=== PATIENT | male | born 1940 | race Caucasian/White ===

== ENCOUNTER 2017-04-07 09:07 | Outpatient (CLI) | payer MEDICARE, OTHER ==
[2017-04-07 09:26] LABS: BASOPHILS # (AUTO) 0.1 10^3/uL (0.0-0.1); BASOPHILS % (AUTO) 1.2 %; EOSINOPHILS # (AUTO) 0.2 10^3/uL (0.0-0.7); EOSINOPHILS % (AUTO) 3.1 %; HCT - HEMATOCRIT 40.4 % (42.0-52.0); HGB - HEMOGLOBIN 13.8 g/dL (14.0-18.0); LYMPHOCYTES # (AUTO) 1.3 10^3/uL (1.5-3.5); LYMPHOCYTES % (AUTO) 21.3 %; MEAN CORPUSCULAR HEMOGLOBIN 33.3 pg (27.0-31.0); MEAN CORPUSCULAR HGB CONC 34.3 g/dL (32.0-36.0); MEAN CORPUSCULAR VOLUME 97.3 fL (80.0-94.0); MEAN PLATELET VOLUME 6.9 fL (7.4-11.4); MONOCYTES # (AUTO) 0.6 10^3/uL (0.0-1.0); MONOCYTES % (AUTO) 9.3 %; NEUTROPHILS % (AUTO) 65.1 %; RED BLOOD COUNT 4.15 10^6/uL (4.70-6.10); RED CELL DISTRIBUTION WIDTH 12.5 % (12.0-15.0); UNCORRECTED WHITE BLOOD COUNT 6.1 x10^3/uL; WHITE BLOOD COUNT 6.1 x10^3/uL (4.8-10.8)
[2017-04-07 09:42] LABS: ALBUMIN/GLOBULIN RATIO 1.4 (1.0-2.2); BILIRUBIN,TOTAL 0.6 mg/dL (0.2-1.0); BUN - BLOOD UREA NITROGEN 13 mg/dL (6-20); CALCIUM 9.2 mg/dL (8.5-10.3); CARBON DIOXIDE - CO2 26 mmol/L (21-32); CHLORIDE 99 mmol/L (101-111); CHOL/HDL RATIO 3.7 (<5.0); CHOLESTEROL 183 mg/dL; CREATININE 0.7 mg/dL (0.6-1.2); GFR - MDRD 110 (>89); GLUCOSE 116 mg/dL (70-100); HDL CHOLESTEROL 50 mg/dL; LDL/HDL RATIO 2.2 (<3.6); POTASSIUM 4.2 mmol/L (3.5-5.0); SODIUM 135 mmol/L (135-145); TOTAL PROTEIN 6.6 g/dL (6.7-8.2); TRIGLYCERIDES 119 mg/dL; VLDL CHOLESTEROL 24 mg/dL
[2017-04-07 09:43] LABS: HEMOGLOBIN A1C 0.53 g/dL
== END 2017-04-07 09:08 | disposition home or self-care (01) ==
LOC: LAB 09:07
PROVIDERS: ATTEND Internal Medicine
DX: E11.9 Type 2 diabetes mellitus without complications (principal); E78.5 Hyperlipidemia, unspecified; I10 Essential (primary) hypertension
CPT/HCPCS: 36415; 80053; 80061; 83036; 84443; 85025

== ENCOUNTER 2018-03-08 04:22 | Outpatient (CLI) | payer MEDICARE, OTHER | END 2018-03-08 04:23 | disposition critical access hospital (66) | LOC: EMS 04:22 | PROVIDERS: ATTEND Surgery | DX: R50.9 Fever, unspecified (principal); R42 Dizziness and giddiness; R11.0 Nausea | CPT/HCPCS: A0425; A0427 ==

== ENCOUNTER 2018-03-08 04:54 | Emergency (ER) | payer MEDICARE, OTHER ==
--- NOTE | 2018-03-08 04:59 | ED Physician Documentation ---
PD HPI FEVER - Stated complaint Stated Complaint: FEVER - Chief complaint Chief Complaint: Fever - History obtained from History obtained from: Patient, Family, EMS - History of Present Illness Timing - onset: Enter time (00:00 (midnight)) Timing details: Abrupt onset, Intermittant Pain level now: 2 Associated symptoms: Chills, Sweats, Rash/skin lesion Similar symptoms before: Diagnosis (has had LLE cellulitis several times in the past, including episodes associated with fever as well as sepsis and inpatient treatmemt) Recently seen: Not recently seen - Additional information Additional information: Patient woke at approximately midnight with shaking chills, took his temperature, and it was 100.1. Approximately one hour later he woke up with another episode of shaking chills, took his temperature and it was 101. He says at that point, his gave him ibuprofen, although his , who is present in emergency department, does not recall giving him ibuprofen. Brought in by ambulance. Review of Systems Constitutional: reports: Fever, Chills, Sweats Nose: reports: Reviewed and negative Throat: reports: Reviewed and negative Cardiac: reports: Reviewed and negative Respiratory: reports: Reviewed and negative GI: reports: Reviewed and negative : denies: Dysuria, Frequency Skin: reports: Rash (left ankle) Musculoskeletal: reports: Extremity pain, Extremity swelling PD PAST MEDICAL HISTORY - Past Medical History Cardiovascular: None Respiratory: None Endocrine/Autoimmune: Type 2 diabetes, HyPOthyroidism GI: None : Other HEENT: None Psych: None Musculoskeletal: Osteoarthritis Derm: None - Past Surgical History Past Surgical History: Yes - Present Medications Home Medications: Ambulatory Orders Medication Instructions Recorded Confirmed Etodolac [Etodolac ER] 500 mg PO BID 10/16/12 03/09/18 Metformin HCl 500 mg PO BID 10/16/12 03/09/18 quiNINE sulfate [Quinine Sulfate] 324 mg PO HS 10/16/12 03/09/18 Amox/Clav 875/125 [Augmentin] 1 each PO Q12H #14 tablet 03/08/18 03/09/18 Calcium Carbonate [Calcium] 1 tab PO DAILY 03/08/18 03/09/18 Cholecalciferol (Vitamin D3) 1,000 unit PO DAILY 03/08/18 03/09/18 [Vitamin D3] - Allergies Allergies/Adverse Reactions: Allergies Allergy/AdvReac Type Severity Reaction Status Date / Time No Known Drug Allergies Allergy Verified 03/09/18 02:21 - Social History Does the pt smoke?: No Smoking Status: Former smoker Does the pt drink ETOH?: Yes Does the pt have substance abuse?: No - POLST Patient has POLST: No PD ED PE NORMAL - Vitals Vital signs reviewed: Yes - General General: Alert and oriented X 3, No acute distress, Well developed/nourished - HEENT HEENT: Moist mucous membranes - Neck Neck: Supple, no meningeal sign - Cardiac Cardiac: RRR, No murmur - Respiratory Respiratory: No respiratory distress, Clear bilaterally - Abdomen Abdomen: Soft, Non tender - Neuro Neuro: Alert and oriented X 3 PD ED PE EXPANDED - Extremities Extremities: Left ankle (medial aspect: confluent erythema with sharp margins, hot to touch, non tender. mild edema), Pedal edema bilateral Results - Vitals Vitals: Vital Signs - 24 hr 03/08/18 03/08/18 05:58 06:34 Temperature 37.5 C 38.5 C H Heart Rate 75 74 Respiratory 16 20 Rate Blood Pressure 108/76 142/94 H O2 Saturation 97 94 Oxygen O2 Source Room air Oxygen Flow Rate 3 - Labs Labs: Microbiology 03/08/18 05:41 Blood Culture - Preliminary Blood - Right Arm 03/08/18 05:21 Blood Culture - Preliminary Blood - Left Arm Laboratory Tests 03/08/18 03/08/18 03/08/18 05:18 05:21 05:21 WBC 13.2 H RBC 3.88 L Hgb 13.2 L Hct 38.4 L MCV 98.9 H MCH 34.0 H MCHC 34.4 RDW 13.2 Plt Count 213 MPV 7.2 L Neut # (Auto) 12.1 H Lymph # (Auto) 0.3 L [place] # (Auto) 0.7 Eos # (Auto) 0.0 Baso # (Auto) 0.1 Absolute Nucleated RBC 0.00 Nucleated RBC % 0.0 Sodium 131 L Potassium 3.7 Chloride 101 Carbon Dioxide 21 Anion Gap 9.0 BUN 18 Creatinine 0.7 Estimated GFR (MDRD) 110 Glucose 159 H Lactic Acid Calcium 8.7 Total Bilirubin 0.6 AST 26 ALT 19 Alkaline Phosphatase 79 Total Protein 6.7 Albumin 4.0 Globulin 2.7 Albumin/Globulin Ratio 1.5 Lipase 28 Influenza A (Rapid) Negative Influenza B (Rapid) Negative 03/08/18 05:21 WBC RBC Hgb Hct MCV MCH MCHC RDW Plt Count MPV Neut # (Auto) Lymph # (Auto) [place] # (Auto) Eos # (Auto) Baso # (Auto) Absolute Nucleated RBC Nucleated RBC % Sodium Potassium Chloride Carbon Dioxide Anion Gap BUN Creatinine Estimated GFR (MDRD) Glucose Lactic Acid 1.9 Calcium Total Bilirubin AST ALT Alkaline Phosphatase Total Protein Albumin Globulin Albumin/Globulin Ratio Lipase Influenza A (Rapid) Influenza B (Rapid) PD MEDICAL DECISION MAKING - ED course Complexity details: reviewed old records, reviewed results, re-evaluated patient, considered differential, d/w patient, d/w family Departure - Departure Disposition: 01 Home, Self Care Clinical Impression: Cellulitis of left ankle Condition: Good Instructions: ED Infec Skin Cellulitis Follow-Up: Bebeto Paul MD [Provider Admit Priv/Credential] - (3-5 days) Prescriptions: Amox/Clav 875/125 [Augmentin] 1 each PO Q12H #14 tablet Discharge Date/Time: 03/08/18 06:40
[2018-03-08 05:30] LABS: BASOPHILS # (AUTO) 0.1 10^3/uL (0.0-0.1); BASOPHILS % (AUTO) 0.5 %; EOSINOPHILS % (AUTO) 0.1 %; HGB - HEMOGLOBIN 13.2 g/dL (14.0-18.0); LYMPHOCYTES # (AUTO) 0.3 10^3/uL (1.5-3.5); MEAN CORPUSCULAR HGB CONC 34.4 g/dL (32.0-36.0); MEAN CORPUSCULAR VOLUME 98.9 fL (80.0-94.0); MEAN PLATELET VOLUME 7.2 fL (7.4-11.4); MONOCYTES # (AUTO) 0.7 10^3/uL (0.0-1.0); MONOCYTES % (AUTO) 5.6 %; NEUTROPHILS # (AUTO) 12.1 10^3/uL (1.5-6.6); NEUTROPHILS % (AUTO) 91.8 %; PLT - PLATELET COUNT 213 10^3/uL (130-450); RED BLOOD COUNT 3.88 10^6/uL (4.70-6.10); RED CELL DISTRIBUTION WIDTH 13.2 % (12.0-15.0); WHITE BLOOD COUNT 13.2 x10^3/uL (4.8-10.8)
[2018-03-08] MEDS ORDERED: ACETAMINOPHEN 325 MG TABLET PO STA (05:34)
[2018-03-08 05:41] LABS: ALBUMIN/GLOBULIN RATIO 1.5 (1.0-2.2); BILIRUBIN,TOTAL 0.6 mg/dL (0.2-1.0); CALCIUM 8.7 mg/dL (8.5-10.3); CREATININE 0.7 mg/dL (0.6-1.2); TOTAL PROTEIN 6.7 g/dL (6.7-8.2)
[2018-03-08] MEDS ORDERED: cefTRIAXone 1 GM VIAL IVP STA (06:02)
[2018-03-08 06:39] VITALS: BP 142/94
== END 2018-03-08 06:40 | disposition home or self-care (01) ==
LOC: EDUNIT# → ED 04:54
DX: L03.116 Cellulitis of left lower limb (principal); E11.9 Type 2 diabetes mellitus without complications; Z79.84 Long term (current) use of oral hypoglycemic drugs; Z87.891 Personal history of nicotine dependence
CPT/HCPCS: 36415; 80053; 83605; 83690; 85025; 87040; 87275; 87276; 96374; 99283; 99284; A9270; 87181

== ENCOUNTER 2018-03-09 01:48 | Inpatient (IN) | payer MEDICARE, OTHER ==
--- NOTE | 2018-03-09 02:23 | ED Physician Documentation ---
History of Present Illness - Stated complaint Stated Complaint: POSITIVE BC/CELLULITIS - Chief complaint Chief Complaint: General - History obtained from History obtained from: Patient, Family - History of Present Illness Timing: Last night - Additonal information Additional information: 77-year-old male who states that he had felt well yesterday and then spiked a fever at about 1:00 in the morning and came to the emergency department with shaking chills. He had some swelling and erythema to the left leg was treated for cellulitis with IV Rocephin he has been placed onto Augmentin. Today his blood cultures have returned positive for gram-negative rods out of both arms. The patient states that over the day today he has not felt well and he has been somewhat confused. He states that he still felt extremely fatigued and he has had this happen to him previously. The patient has had sepsis previously required hospitalization. Review of Systems Constitutional: reports: Fever, Chills, Myalgias, Fatigue Eyes: denies: Decreased vision Ears: denies: Ear pain Nose: reports: Congestion. denies: Rhinorrhea / runny nose Throat: denies: Sore throat Cardiac: denies: Chest pain / pressure, Palpitations Respiratory: reports: Cough. denies: Dyspnea GI: reports: Nausea. denies: Abdominal Pain, Vomiting : denies: Dysuria, Frequency Skin: denies: Rash Musculoskeletal: reports: Extremity pain, Extremity swelling. denies: Neck pain, Back pain Neurologic: reports: Generalized weakness, Confused. denies: Focal weakness, Numbness PD PAST MEDICAL HISTORY - Past Medical History Past Medical History: Yes Cardiovascular: None Respiratory: None Endocrine/Autoimmune: Type 2 diabetes, HyPOthyroidism GI: None : Other HEENT: None Psych: None Musculoskeletal: Osteoarthritis Derm: None - Past Surgical History Past Surgical History: Yes - Present Medications Home Medications: Ambulatory Orders Medication Instructions Recorded Confirmed Etodolac [Etodolac ER] 500 mg PO BID 10/16/12 03/09/18 Metformin HCl 500 mg PO BID 10/16/12 03/09/18 quiNINE sulfate [Quinine Sulfate] 324 mg PO HS 10/16/12 03/09/18 Amox/Clav 875/125 [Augmentin] 1 each PO Q12H #14 tablet 03/08/18 03/09/18 Calcium Carbonate [Calcium] 1 tab PO DAILY 03/08/18 03/09/18 Cholecalciferol (Vitamin D3) 1,000 unit PO DAILY 03/08/18 03/09/18 [Vitamin D3] - Allergies Allergies/Adverse Reactions: Allergies Allergy/AdvReac Type Severity Reaction Status Date / Time No Known Drug Allergies Allergy Verified 03/09/18 02:21 - Social History Does the pt smoke?: No Smoking Status: Never smoker Does the pt drink ETOH?: Yes Does the pt have substance abuse?: No - Immunizations Immunizations are current?: Yes - POLST Patient has POLST: No PD ED PE NORMAL - Vitals Vital signs reviewed: Yes (hypertensive ) - General General: Alert and oriented X 3, Well developed/nourished, Other (The patient appears flush and fatigued) - HEENT HEENT: Atraumatic, PERRL - Neck Neck: Supple, no meningeal sign, No bony TTP - Cardiac Cardiac: RRR, Other (2/6 holosystolic murmer at LSB) - Respiratory Respiratory: No respiratory distress, Clear bilaterally - Abdomen Abdomen: Soft, Non tender - Back Back: No CVA TTP, No spinal TTP - Derm Derm: Normal color, Warm and dry, No rash - Extremities Extremities: No deformity, Other (The left leg is swollen and tender at the ankle with faint erythema. ) - Neuro Neuro: Alert and oriented X 3, pond supervisor 2-12 intact, No motor deficit, No sensory deficit, Normal speech Eye Opening: Spontaneous Motor: Obeys Commands Verbal: Oriented GCS Score: 15 - Psych Psych: Normal mood, Normal affect Results - Vitals Vitals: Vital Signs - 24 hr 03/09/18 01:50 Temperature 36.9 C Heart Rate 64 Respiratory 18 Rate Blood Pressure 137/66 H O2 Saturation 95 Oxygen O2 Source Room air Procedures - IVC sono (time) 0230 Bedside IVC sono: IVC measures (cm) (1.19), IVC collapsed c insp (cm) (complete), Low CVP, Dehydration (est 1 liter deficit) PD MEDICAL DECISION MAKING - ED course Complexity details: reviewed old records, reviewed results, re-evaluated patient, considered differential, d/w patient, d/w family ED course: 77-year-old male with a history of prior sepsis has developed swelling and redness and tenderness in the left ankle he was seen in the emerge department last night where blood cultures were drawn and they have grown gram-negative bacilli out of both arms. He presents today not feeling well and with low central venous pressure. He is administered intravenous saline and Rocephin. His erythema appears improved from yesterday. He is still ill. Hospitalization is indicated. Departure - Departure Disposition: 66 [facility] DC/[facility] Clinical Impression: Cellulitis of left lower extremity, Bacteremia due to Gram-negative bacteria
[2018-03-09] MEDS ORDERED: cefTRIAXone 1 GM in SODIUM CHLORIDE 0.9% MINIBAG 100 ML IV STA (02:29)
[2018-03-09] MEDS ORDERED: SODIUM CHLORIDE 0.9% 1,000 ML IV ONE (02:29)
[2018-03-09] MEDS ORDERED: oxyCODONE 5 MG TABLET PO PRN (02:43)
[2018-03-09] MEDS ORDERED: ONDANSETRON 4 MG/2 ML VIAL IVP PRN (02:43)
[2018-03-09] MEDS ORDERED: ZOLPIDEM 5 MG TABLET PO PRN (02:43)
[2018-03-09] MEDS ORDERED: MORPHINE 2 MG/ML CARPUJECT IVP PRN (02:43)
[2018-03-09] MEDS ORDERED: PROCHLORPERAZINE 10 MG/2 ML VIAL IVP PRN (02:43)
[2018-03-09 03:05] LABS: BASOPHILS # (AUTO) 0.1 10^3/uL (0.0-0.1); BASOPHILS % (AUTO) 0.5 %; HGB - HEMOGLOBIN 12.5 g/dL (14.0-18.0); LYMPHOCYTES # (AUTO) 0.3 10^3/uL (1.5-3.5); LYMPHOCYTES % (AUTO) 2.9 %; MEAN CORPUSCULAR HEMOGLOBIN 34.5 pg (27.0-31.0); MEAN CORPUSCULAR HGB CONC 35.2 g/dL (32.0-36.0); MEAN PLATELET VOLUME 7.4 fL (7.4-11.4); MONOCYTES # (AUTO) 0.5 10^3/uL (0.0-1.0); MONOCYTES % (AUTO) 4.4 %; NEUTROPHILS # (AUTO) 9.8 10^3/uL (1.5-6.6); NEUTROPHILS % (AUTO) 92.2 %; PLT - PLATELET COUNT 185 10^3/uL (130-450); RED BLOOD COUNT 3.62 10^6/uL (4.70-6.10); RED CELL DISTRIBUTION WIDTH 13.1 % (12.0-15.0); WHITE BLOOD COUNT 10.6 x10^3/uL (4.8-10.8)
--- NOTE | 2018-03-09 03:09 | XRAY Report ---
Reason: sepsis cough Procedure Date: 03/09/2018 Accession Number: [id number] / [id number] Procedure: XR - Chest 1 View X-Ray CPT Code: 02942 FULL RESULT: EXAM: CHEST RADIOGRAPHY EXAM DATE: 03/09/2018 02:53 AM. CLINICAL HISTORY: Sepsis cough. COMPARISON: CHEST 2 VIEW PA/LAT 12/16/2014 11:47 PM. TECHNIQUE: 1 view. FINDINGS: Lungs/Pleura: Small lung volumes. Elevated left hemidiaphragm. Pulmonary vascular congestion. Mild left basilar atelectasis or infiltrate. No pleural effusion seen. No pneumothorax. Mediastinum: Within exam limitations, there is borderline cardiomegaly. Other: None. IMPRESSION: 1. Small lung volumes with borderline cardiomegaly and pulmonary vascular congestion. 2. Elevated left hemidiaphragm with mild left basilar atelectasis or infiltrate. RADIA
[2018-03-09 03:16] LABS: ALBUMIN 3.3 g/dL (3.2-5.5); ALBUMIN/GLOBULIN RATIO 1.1 (1.0-2.2); BILIRUBIN,TOTAL 0.7 mg/dL (0.2-1.0); CALCIUM 8.3 mg/dL (8.5-10.3); CREATININE 0.7 mg/dL (0.6-1.2); TOTAL PROTEIN 6.2 g/dL (6.7-8.2)
--- NOTE | 2018-03-09 03:23 | HISTORY & PHYSICAL EXAMINATION ---
Chief Complaint - Chief Complaint Chief Complaint: Generally feeling unwell with fever History of Present Illness - Admitted From Admitted From:: Emergency department - History Obtained From Records Reviewed: Current ER visit and previous hospitalizations History obtained from: Patient and Dr. Borrero, ED physician Exam Limitations: None - History of Present Illness HPI Comment/Other: Patient is a 77-year-old male with a past medical history of type 2 diabetes mellitus, recurrent left ankle cellulitis, prostate cancer who presents to the emergency room having been called with a positive blood culture results. The shayna castro was in the emergency room the night prior, and 03/08/2018 after he felt unwell at home, with a chief complaint of generally feeling unwell with muscle aches and feeling sick and having a fever subjectively with chills. When he was seen in the emergency room last evening, he was given a presumptive diagnosis of left ankle cellulitis as he is had this in the past, was given a dose of Rocephin and sent home with Augmentin. He returns today with worsening of the same symptoms, feeling weak, again muscle aches and unwell and was called by the emergency room staff because a blood culture came back positive with gram- negative bacilli x2. In the ED his treatment consisted of a single 1 L Bolus of IV fluids and a dose of Rocephin IV. At the time of this dictation, limited laboratory results were available with only a BMP and a CBC with no significant abnormalities with the exception of a mild hyponatremia. White blood cell count is normal. Blood pressure is normal and heart rate is normal. He does not have any obvious criteria of sepsis at this point in time despite the bacteremia. I was called to admit the patient for IV antibiotics and IV fluid hydration. History - Past Medical History Cardiovascular: reports: None Respiratory: reports: None Endocrine/Autoimmune: reports: Type 2 diabetes, HyPOthyroidism GI: reports: None : reports: Other (Prostate cancer) HEENT: reports: None Psych: reports: None Musculoskeletal: reports: Osteoarthritis Derm: reports: None MRSA Hx?: No - Past Surgical History /SURGERY ATTENDANT: reports: Other (Prostate cancer implant beats and gamma knife radiation) - POLST Patient has POLST: No Meds/Allgy - Home Medications Home Medications: Ambulatory Orders Medication Instructions Recorded Confirmed Etodolac [Etodolac ER] 500 mg PO BID 10/16/12 03/09/18 Metformin HCl 500 mg PO BID 10/16/12 03/09/18 quiNINE sulfate [Quinine Sulfate] 324 mg PO HS 10/16/12 03/09/18 Amox/Clav 875/125 [Augmentin] 1 each PO Q12H #14 tablet 03/08/18 03/09/18 Calcium Carbonate [Calcium] 1 tab PO DAILY 03/08/18 03/09/18 Cholecalciferol (Vitamin D3) 1,000 unit PO DAILY 03/08/18 03/09/18 [Vitamin D3] - Allergies Allergies/Adverse Reactions: Allergies Allergy/AdvReac Type Severity Reaction Status Date / Time No Known Drug Allergies Allergy Verified 03/09/18 02:21 Review of Systems - Constitutional Constitutional: reports: Fever, Chills, Malaise, Weakness, Poor appetite, Diaphoresis, Night sweats - Ears, Nose & Throat Ears, Nose & Throat: denies: Nasal discharge, Nasal congestion - Cardiovascular Cariovascular: denies: Chest pain - Respiratory Respiratory: denies: Cough, SOB at rest, SOB with exertion - Gastrointestinal Gastrointestinal: denies: Abdominal pain, Constipation, Diarrhea - Genitourinary Genitourinary: denies: Dysuria, Frequency, Urgency, Hematuria - Musculoskeletal Musculoskeletal: reports: Muscle pain, Back pain, Muscle aches, Stiffness, Joint pain - Integumentary Integumentary: denies: Rash - Neurological Neurological: reports: General weakness - Hematologic/Lymphatic Hematologic/Lymphatic: denies: Bruising, Lymphadenopathy Prior Level of Functionality: Independent Exam - Vital Signs Reviewed Vital Signs: Yes Vital Signs: Vital Signs x48h Temp Pulse Resp BP Pulse Ox 03/09/18 01:50 36.9 C 64 18 137/66 H 95 - Physical Exam General Appearance: positive: No acute distress Eyes Bilateral: positive: Normal inspection ENT: positive: ENT inspection nml Neck: positive: Nml inspection Respiratory: positive: Chest non-tender, No respiratory distress, Breath sounds nml Cardiovascular: positive: Regular rate & rhythm, No murmur, No gallop Peripheral Pulses: positive: 2+ Abdomen: positive: Non-tender, No organomegaly, Nml bowel sounds, No distention Skin: positive: Other (Tiny amount of subtle erythema about the left ankle) Extremities: positive: Non-tender, Nml appearance, No pedal edema. negative: Calf tenderness, Joint swelling Neurologic/Psychiatric: positive: Oriented x3, CN's nml (2-12), Motor nml, Sensation nml Sepsis Event Note (H) - Evaluation Current Stage of Sepsis: Ruled out Conclusion/Plan - Problem List (1) Bacteremia due to Gram-negative bacteria Conclusion/Plan: Based on culture results, will initiate IV antibiotic treatment until culture and sensitivities can narrow antibiotics. Given gram-negative rods we will start with Zosyn since he had Rocephin in the ED the night prior to coming in so presumably this did not help much and there is possibility of resistance. (2) Cellulitis of left lower extremity Conclusion/Plan: It is unclear if this is a confirmed diagnosis, as his exam is not very impressive about the left ankle. Apparently he has had this problem before, but given that he does not have significant erythema edema or tenderness about the ankle, cannot rule out other sources of infection and will continue to search for that as we await culture and sensitivity. (3) T2DM (type 2 diabetes mellitus) Conclusion/Plan: Unclear if the patient's diabetes is well controlled but is blood sugars on the metabolic panel are not very elevated. Will check an A1c and hold metformin and cover with a sliding scale and allow a diabetic diet. Qualifiers: Diabetes mellitus senior care insulin use: without termite inspector use Diabetes mellitus complication status: without complication Qualified Code(s): E11.9 - Type 2 diabetes mellitus without complications - Lab Results Lab results reviewed: Yes Fish Bones: 03/09/18 02:55 03/09/18 02:55 - Diagnostic Imaging Results Diagnostic Imaging Results Comments: Chest x-ray is pending at the time of this dictation Core Measures - Anticipated LOS I expect patient to be DC'd or transferred within 96 hours.: Yes - DVT/VTE - Prophylaxis VTE/DVT Device ordered at admit?: Yes
[2018-03-09] MEDS: INSULIN ASPART 300 UNIT/3 ML PEN SUBQ SCH ×5 (03:36→20:49)
[2018-03-09 03:55] LABS: HB2 TOTAL 10.2 g/dL; HEMOGLOBIN A1C 0.41 g/dL; HEMOGLOBIN A1C % 5.8 % (4.6-6.2)
[2018-03-09] MEDS: PIPERACILLIN/TAZOBACTAM 3.375 GM in SODIUM CHLORIDE 0.9% MINIBAG 100 ML IV SCH ×4 (04:21→21:47)
[2018-03-09] MEDS: SODIUM CHLORIDE 0.9% 1,000 ML IV SCH ×3 (04:21→21:32)
[2018-03-09 06:29] LABS: GLUCOSE, URINE (UA) NEGATIVE (NEGATIVE); KETONES,URINE (UA) TRACE mg/dL (NEGATIVE); LEUKOCYTE ESTERASE, URINE NEGATIVE (NEGATIVE); NITRITE,URINE NEGATIVE (NEGATIVE); OCCULT BLOOD,URINE NEGATIVE (NEGATIVE); PROTEIN,URINE NEGATIVE (NEGATIVE); UROBILINOGEN,URINE 0.2 (NORMAL) E.U./dL (NORMAL)
[2018-03-09 06:35] LABS: BILIRUBIN,URINE LARGE (NEGATIVE); CLARITY,URINE CLEAR (CLEAR); ICTOTEST,URINE POSITIVE
[2018-03-09] MEDS: FAMOTIDINE 20 MG TABLET PO SCH ×2 (09:10→20:44)
[2018-03-09] MEDS: CHOLECALCIFEROL 1,000 UNIT TABLET PO SCH (09:10)
[2018-03-09] MEDS: POLYETHYLENE GLYCOL 3350 17 GM PACKET PO SCH (09:10)
[2018-03-09] MEDS: SODIUM CHLORIDE FLUSH 0.9% 10 ML SYRINGE IVP SCH ×2 (09:10→16:09)
[2018-03-09] MEDS: ENOXAPARIN 40 MG/0.4 ML SYRINGE SUBQ SCH (09:10)
[2018-03-09] MEDS: CALCIUM CARBONATE CHEW 500 MG TABLET PO SCH (09:10)
[2018-03-09] MEDS: ETODOLAC 500 MG PO SCH ×2 (12:30→20:44)
[2018-03-09] MEDS: KETOROLAC TROMETHAMINE LEFTEYE SCH ×3 (12:30→20:49)
[2018-03-09] MEDS ORDERED: metFORMIN 500 MG TABLET PO SCH (12:30)
[2018-03-09] MEDS: IBUPROFEN 600 MG TABLET PO PRN (16:08)
[2018-03-09] MEDS: QUININE 300 MG PO SCH (20:44)
[2018-03-09] MEDS ORDERED: QUININE 324 MG PO SCH ×2 (21:00)
[2018-03-10] MEDS: SODIUM CHLORIDE FLUSH 0.9% 10 ML SYRINGE IVP SCH ×4 (01:58→23:40)
[2018-03-10] MEDS: PIPERACILLIN/TAZOBACTAM 3.375 GM in SODIUM CHLORIDE 0.9% MINIBAG 100 ML IV SCH ×4 (04:01→21:58)
[2018-03-10] MEDS: SODIUM CHLORIDE 0.9% 1,000 ML IV SCH ×3 (06:47→19:26)
[2018-03-10] MEDS: INSULIN ASPART 300 UNIT/3 ML PEN SUBQ SCH ×4 (07:50→21:49)
[2018-03-10] MEDS: KETOROLAC TROMETHAMINE LEFTEYE SCH ×4 (07:57→20:50)
[2018-03-10] MEDS: POLYETHYLENE GLYCOL 3350 17 GM PACKET PO SCH (10:19)
[2018-03-10] MEDS: CALCIUM CARBONATE CHEW 500 MG TABLET PO SCH (10:29)
[2018-03-10] MEDS: CHOLECALCIFEROL 1,000 UNIT TABLET PO SCH (10:30)
[2018-03-10] MEDS: FAMOTIDINE 20 MG TABLET PO SCH ×2 (10:30→20:48)
[2018-03-10] MEDS: ETODOLAC 500 MG PO SCH ×2 (10:31→20:49)
[2018-03-10] MEDS: ENOXAPARIN 40 MG/0.4 ML SYRINGE SUBQ SCH (10:33)
[2018-03-10] MEDS: SODIUM CHLORIDE FLUSH 0.9% 10 ML SYRINGE IVP PRN ×2 (12:26→16:54)
--- NOTE | 2018-03-10 15:31 | PROVIDER PROGRESS NOTE ---
Assessment/Plan - Problem List (1) Bacteremia due to Gram-negative bacteria Assessment/Plan: Pseudomonas was just ID'd and is sensitive to Piperacillin Will continue Pip/Tazo. Will obtain u/a and urine culture if needed to find the source. Will obtain Echo to eval for vegetation. I explained to pt and that the duration of treatment will depend on where it's source is: osteomyelitis will need 2-4 weeks of iv antibiotics, endocarditis would need 6 weeks, etc. (2) Cellulitis of left lower extremity Assessment/Plan: The patient described seeing specialists in [place] and he soaks in vinegar and puts a cream on his feet, but had a callous that didn't get the cream applied. Will obtain a L ankle and foot MRI to evaluate for osteo. (3) T2DM (type 2 diabetes mellitus) Qualifiers: Diabetes mellitus complication status: without complication Assessment/Plan: Cont carb-controlled diet and Insulin coverage. He has good home glu control with A1c of about 6. - Current Meds Current Meds: Current Medications Generic Name Dose Route Start Last Admin Trade Name Freq PRN Reason Stop Dose Admin Calcium Carbonate/Glycine 500 mg 03/09/18 09:00 03/10/18 10:29 Tums PO 500 mg DAILY HEATHER Administration Cholecalciferol 1,000 unit 03/09/18 09:00 03/10/18 10:30 Vitamin D3 PO 1,000 unit DAILY HEATHER Administration Enoxaparin Sodium 40 mg 03/09/18 09:00 03/10/18 10:33 Lovenox SUBQ 40 mg DAILY HEATHER Administration Famotidine 20 mg 03/09/18 09:00 03/10/18 10:30 Pepcid PO 20 mg BID HEATHER Administration Piperacillin Sod/Tazobactam 100 mls @ 200 mls/hr 03/09/18 04:00 03/10/18 10:55 Sod 3.375 gm/ Sodium Chloride IV Infused Q6H HEATHER Infusion Sodium Chloride 1,000 mls @ 125 mls/hr 03/09/18 03:00 03/10/18 06:47 Normal Saline 0.9% IV 125 mls/hr .Q8H HEATHER Administration Ibuprofen 600 mg 03/09/18 02:43 03/09/18 16:08 Motrin PO 600 mg Q6HR PRN Administration Pain 1 to 4 Insulin Aspart 1 - 9 unit 03/09/18 02:54 03/10/18 12:27 Novolog SUBQ Not Given 0800,1200,1700,2100 [facility] Protocol Ketorolac 1 each 03/09/18 13:00 03/10/18 12:27 Tromethamine [ LEFTEYE 1 each Ketorolac QID HEATHER Administration Tromethamine] 1 Drops Prednisolone 1% 1 each 03/09/18 13:00 03/10/18 12:27 Ophth Drops LEFTEYE 1 each QID HEATHER Administration Quinine-Odan 300 Mg 1 each 03/09/18 21:00 03/09/18 20:44 PO 1 each QPM HEATHER Administration Etodolac [Etodolac 1 each 03/09/18 12:15 03/10/18 10:31 Er] 500 Mg Tab PO 1 each BID HEATHER Administration Polyethylene Glycol 17 gm 03/09/18 09:00 03/10/18 10:19 Miralax PO Not Given DAILY HEATHER Sodium Chloride 10 ml 03/09/18 02:43 03/10/18 12:26 Normal Saline Flush 0.9% IVP 10 ml PRN PRN Administration NEEDED PER PROVIDER ORDERS Sodium Chloride 10 ml 03/09/18 09:00 03/10/18 12:29 Normal Saline Flush 0.9% IVP 10 ml 0100,0900,1700 HEATHER Administration - Lab Result Fish Bone Diagrams: 03/09/18 02:55 03/09/18 02:55 Subjective - Subjective Patient Reports: No Complaints, Other (Has no feeling in his feet.) Objective Vital Signs: Vital Signs - 24 hr 03/09/18 03/09/18 03/09/18 15:32 20:51 22:17 Temperature 37.3 C 36.5 C Heart Rate [ 55 L 54 L Brachial] Respiratory 16 24 18 Rate Blood Pressure 152/73 H [Left Brachial artery] Blood Pressure 138/67 H [Right Brachial artery] O2 Saturation 97 97 03/09/18 03/10/18 23:35 07:20 Temperature 36.8 C 36.7 C Heart Rate [ 54 L 51 L Brachial] Respiratory 16 16 Rate Blood Pressure 131/70 H [Left Brachial artery] Blood Pressure 154/87 H [Right Brachial artery] O2 Saturation 95 96 Oxygen O2 Source Room air I&O (Last 24 Hrs): Intake and Output Totals x24h 03/08/18 03/09/18 03/10/18 23:59 23:59 23:59 Intake Total 20 2250 2444.167 Output Total 2125 1500 Balance 20 9075 944.167 General: Alert, Oriented x3 HEENT: Mucous membr. moist/pink Neck: Supple, No JVD Neuro: Non Focal Cardiovascular: Regular rate, No murmurs Respiratory: No respiratory distress, Breath sounds nml Abdomen: Soft, Other (Obese) Extremities: Other (L pedal edema) - Results Results: Laboratory Results WBC 10.6 x10^3/uL (4.8-10.8) 03/09/18 02:55 RBC 3.62 10^6/uL (4.70-6.10) L 03/09/18 02:55 Hgb 12.5 g/dL (14.0-18.0) L 03/09/18 02:55 Hct 35.4 % (42.0-52.0) L 03/09/18 02:55 MCV 98.0 fL (80.0-94.0) H 03/09/18 02:55 MCH 34.5 pg (27.0-31.0) H 03/09/18 02:55 MCHC 35.2 g/dL (32.0-36.0) 03/09/18 02:55 RDW 13.1 % (12.0-15.0) 03/09/18 02:55 Plt Count 185 10^3/uL (130-450) 03/09/18 02:55 MPV 7.4 fL (7.4-11.4) 03/09/18 02:55 Neut # (Auto) 9.8 10^3/uL (1.5-6.6) H 03/09/18 02:55 Lymph # (Auto) 0.3 10^3/uL (1.5-3.5) L 03/09/18 02:55 [place] # (Auto) 0.5 10^3/uL (0.0-1.0) 03/09/18 02:55 Eos # (Auto) 0.0 10^3/uL (0.0-0.7) 03/09/18 02:55 Baso # (Auto) 0.1 10^3/uL (0.0-0.1) 03/09/18 02:55 Absolute Nucleated RBC 0.01 x10^3/uL 03/09/18 02:55 Nucleated RBC % 0.0 /100WBC 03/09/18 02:55 Sodium 128 mmol/L (135-145) L 03/09/18 02:55 Potassium 3.6 mmol/L (3.5-5.0) 03/09/18 02:55 Chloride 102 mmol/L (101-111) 03/09/18 02:55 Carbon Dioxide 22 mmol/L (21-32) 03/09/18 02:55 Anion Gap 4.0 (6-13) L 03/09/18 02:55 BUN 22 mg/dL (6-20) H 03/09/18 02:55 Creatinine 0.7 mg/dL (0.6-1.2) 03/09/18 02:55 Estimated GFR (MDRD) 110 (>89) 03/09/18 02:55 Glucose 122 mg/dL (70-100) H 03/09/18 02:55 POC Whole Bld Glucose 104 mg/dL (70 - 100) H 03/10/18 11:03 Glycated Hemoglobin 5.8 % (4.6-6.2) 03/09/18 03:05 Estim Average Glucose 120 (70-100) H 03/09/18 03:05 Lactic Acid 0.7 mmol/L (0.5-2.2) 03/09/18 02:55 Calcium 8.3 mg/dL (8.5-10.3) L 03/09/18 02:55 Total Bilirubin 0.7 mg/dL (0.2-1.0) 03/09/18 02:55 AST 32 IU/L (10-42) 03/09/18 02:55 ALT 30 IU/L (10-60) 03/09/18 02:55 Alkaline Phosphatase 63 IU/L (42-121) 03/09/18 02:55 Total Protein 6.2 g/dL (6.7-8.2) L 03/09/18 02:55 Albumin 3.3 g/dL (3.2-5.5) 03/09/18 02:55 Globulin 2.9 g/dL (2.1-4.2) 03/09/18 02:55 Albumin/Globulin Ratio 1.1 (1.0-2.2) 03/09/18 02:55 Lipase 22 U/L (22-51) 03/09/18 02:55 Urine Color DARK YELLOW 03/09/18 05:50 Urine Clarity CLEAR (CLEAR) 03/09/18 05:50 Urine pH 6.0 PH (5.0-7.5) 03/09/18 05:50 Ur Specific [place] 1.025 (1.002-1.030) 03/09/18 05:50 Urine Protein NEGATIVE mg/dL (NEGATIVE) 03/09/18 05:50 Urine Glucose (UA) NEGATIVE mg/dL (NEGATIVE) 03/09/18 05:50 Urine Ketones TRACE mg/dL (NEGATIVE) 03/09/18 05:50 Urine Occult Blood NEGATIVE (NEGATIVE) 03/09/18 05:50 Urine Nitrite NEGATIVE (NEGATIVE) 03/09/18 05:50 Urine Bilirubin LARGE (NEGATIVE) H 03/09/18 05:50 Urine Urobilinogen 0.2 (NORMAL) E.U./dL (NORMAL) 03/09/18 05:50 Ur Leukocyte Esterase NEGATIVE (NEGATIVE) 03/09/18 05:50 Ur Microscopic Review NOT INDICATED 03/09/18 05:50 Urine Culture Comments NOT INDICATED 03/09/18 05:50 Sepsis Event Note (H) - Evaluation Current Stage of Sepsis: Ruled out
[2018-03-10 19:19] LABS: GLUCOSE, URINE (UA) NEGATIVE (NEGATIVE); KETONES,URINE (UA) NEGATIVE (NEGATIVE); LEUKOCYTE ESTERASE, URINE NEGATIVE (NEGATIVE); NITRITE,URINE NEGATIVE (NEGATIVE); OCCULT BLOOD,URINE SMALL (NEGATIVE); PROTEIN,URINE NEGATIVE (NEGATIVE); UROBILINOGEN,URINE 0.2 (NORMAL) E.U./dL (NORMAL)
[2018-03-10 19:23] LABS: BILIRUBIN,URINE NEGATIVE (NEGATIVE); CLARITY,URINE CLEAR (CLEAR); ICTOTEST,URINE NEGATIVE
[2018-03-10 19:26] LABS: BACTERIA,URINE None Seen /HPF (None Seen); RBC,URINE 0-5 /HPF (0-5); SQUAMOUS EPITHELIAL CELL,UR NONE SEEN (<= Few)
[2018-03-10] MEDS: QUININE 300 MG PO SCH (20:49)
[2018-03-11] MEDS: SODIUM CHLORIDE 0.9% 1,000 ML IV SCH ×3 (03:19→23:01)
[2018-03-11] MEDS: PIPERACILLIN/TAZOBACTAM 3.375 GM in SODIUM CHLORIDE 0.9% MINIBAG 100 ML IV SCH ×2 (03:20→10:27)
[2018-03-11 06:35] LABS: BASOPHILS % (AUTO) 1.2 %; EOSINOPHILS # (AUTO) 0.1 10^3/uL (0.0-0.7); EOSINOPHILS % (AUTO) 2.6 %; HGB - HEMOGLOBIN 11.9 g/dL (14.0-18.0); LYMPHOCYTES % (AUTO) 23.7 %; MEAN CORPUSCULAR HEMOGLOBIN 33.7 pg (27.0-31.0); MEAN CORPUSCULAR VOLUME 99.2 fL (80.0-94.0); MEAN PLATELET VOLUME 7.9 fL (7.4-11.4); MONOCYTES # (AUTO) 0.6 10^3/uL (0.0-1.0); MONOCYTES % (AUTO) 13.8 %; NEUTROPHILS # (AUTO) 2.4 10^3/uL (1.5-6.6); NEUTROPHILS % (AUTO) 58.7 %; PLT - PLATELET COUNT 166 10^3/uL (130-450); RED BLOOD COUNT 3.52 10^6/uL (4.70-6.10); RED CELL DISTRIBUTION WIDTH 12.9 % (12.0-15.0); WHITE BLOOD COUNT 4.1 x10^3/uL (4.8-10.8)
[2018-03-11 06:48] LABS: CALCIUM 8.5 mg/dL (8.5-10.3); CREATININE 0.7 mg/dL (0.6-1.2)
[2018-03-11] MEDS: SODIUM CHLORIDE FLUSH 0.9% 10 ML SYRINGE IVP SCH ×2 (07:40→17:43)
[2018-03-11] MEDS: INSULIN ASPART 300 UNIT/3 ML PEN SUBQ SCH ×4 (08:45→22:39)
[2018-03-11] MEDS: POLYETHYLENE GLYCOL 3350 17 GM PACKET PO SCH (08:46)
[2018-03-11] MEDS: ENOXAPARIN 40 MG/0.4 ML SYRINGE SUBQ SCH (08:46)
[2018-03-11] MEDS: CALCIUM CARBONATE CHEW 500 MG TABLET PO SCH (08:46)
[2018-03-11] MEDS: FAMOTIDINE 20 MG TABLET PO SCH ×2 (08:46→21:49)
[2018-03-11] MEDS: CHOLECALCIFEROL 1,000 UNIT TABLET PO SCH (08:46)
[2018-03-11] MEDS: ETODOLAC 500 MG PO SCH ×2 (08:47→21:50)
[2018-03-11] MEDS: KETOROLAC TROMETHAMINE LEFTEYE SCH ×4 (08:47→21:50)
--- NOTE | 2018-03-11 09:05 | PROVIDER PROGRESS NOTE ---
Assessment/Plan - Problem List (1) Bacteremia due to Pseudomonas Assessment/Plan: Echo showed no vegetations. U/A was neg for bacteria (but sample was provided after several doses of antibiotics. MRI of L foot pending. The blood cultures taken after admitted and with his fever spike, have been neg thus far. Course of treatment will depend on source. We may need help from ID specialists at . I informed patient of this. (2) Cellulitis of left lower extremity Assessment/Plan: Pt on antibiotics, no complaints of pain. (3) T2DM (type 2 diabetes mellitus) Qualifiers: Diabetes mellitus complication status: without complication Assessment/Plan: Continue oral meds, DM diet and ss Insulin. - Current Meds Current Meds: Current Medications Generic Name Dose Route Start Last Admin Trade Name Freq PRN Reason Stop Dose Admin Calcium Carbonate/Glycine 500 mg 03/09/18 09:00 03/11/18 08:46 Tums PO 500 mg DAILY HEATHER Administration Cholecalciferol 1,000 unit 03/09/18 09:00 03/11/18 08:46 Vitamin D3 PO 1,000 unit DAILY HEATHER Administration Enoxaparin Sodium 40 mg 03/09/18 09:00 03/11/18 08:46 Lovenox SUBQ 40 mg DAILY HEATHER Administration Famotidine 20 mg 03/09/18 09:00 03/11/18 08:46 Pepcid PO 20 mg BID HEATHER Administration Piperacillin Sod/Tazobactam 100 mls @ 200 mls/hr 03/09/18 04:00 03/11/18 04:10 Sod 3.375 gm/ Sodium Chloride IV Infused Q6H HEATHER Infusion Sodium Chloride 1,000 mls @ 125 mls/hr 03/09/18 03:00 03/11/18 03:19 Normal Saline 0.9% IV 125 mls/hr .Q8H HEATHER Administration Ibuprofen 600 mg 03/09/18 02:43 03/09/18 16:08 Motrin PO 600 mg Q6HR PRN Administration Pain 1 to 4 Insulin Aspart 1 - 9 unit 03/09/18 02:54 03/11/18 08:45 Novolog SUBQ Not Given 0800,1200,1700,2100 [facility] Protocol Ketorolac 1 each 03/09/18 13:00 03/11/18 08:47 Tromethamine [ LEFTEYE 1 each Ketorolac QID HEATHER Administration Tromethamine] 1 Drops Prednisolone 1% 1 each 03/09/18 13:00 03/11/18 08:47 Ophth Drops LEFTEYE 1 each QID HEATHER Administration Quinine-Odan 300 Mg 1 each 03/09/18 21:00 03/10/18 20:49 PO 1 each QPM HEATHER Administration Etodolac [Etodolac 1 each 03/09/18 12:15 03/11/18 08:47 Er] 500 Mg Tab PO 1 each BID HEATHER Administration Polyethylene Glycol 17 gm 03/09/18 09:00 03/11/18 08:46 Miralax PO Not Given DAILY HEATHER Sodium Chloride 10 ml 03/09/18 02:43 03/10/18 16:54 Normal Saline Flush 0.9% IVP 10 ml PRN PRN Administration NEEDED PER PROVIDER ORDERS Sodium Chloride 10 ml 03/09/18 09:00 03/11/18 07:40 Normal Saline Flush 0.9% IVP Not Given 0100,0900,1700 HEATHER - Lab Result Fish Bone Diagrams: 03/11/18 06:10 03/11/18 06:10 - Additional Planning My Orders: My Active Orders 03/11/18 07:30 Echo Transthoracic Complete [ECHO] Routine 03/11/18 08:00 Ankle LT W/WO [MRI] Routine 03/12/18 05:00 BMP - BASIC METABOLIC PANEL [CHEM] DAILYLAB CBC - COMP BLD CT W/AUTO DIFF [HEME] DAILYLAB 03/13/18 05:00 BMP - BASIC METABOLIC PANEL [CHEM] DAILYLAB CBC - COMP BLD CT W/AUTO DIFF [HEME] DAILYLAB Subjective - Subjective Patient Reports: No Complaints Objective Vital Signs: Vital Signs - 24 hr 03/10/18 03/11/18 03/11/18 15:56 00:00 08:00 Temperature 36.2 C L 36.5 C 36.6 C Heart Rate [ 52 L 50 L 55 L Brachial] Respiratory 16 18 18 Rate Blood Pressure 164/89 H [Left Brachial artery] Blood Pressure 140/75 H 160/90 H [Right Brachial artery] O2 Saturation 96 97 100 Oxygen O2 Source Room air I&O (Last 24 Hrs): Intake and Output Totals x24h 03/09/18 03/10/18 03/11/18 23:59 23:59 23:59 Intake Total 5650 4387.917 641.667 Output Total 2125 1500 1375 Balance 3525 0617.917 -733.333 General: Alert, Oriented x3 HEENT: Mucous membr. moist/pink Neck: Supple Neuro: Non Focal Cardiovascular: Regular rate, No murmurs Respiratory: No respiratory distress, Breath sounds nml Abdomen: Normal bowel sounds Extremities: Other (Bilat pedal edema) - Results Results: Laboratory Results WBC 4.1 x10^3/uL (4.8-10.8) L 03/11/18 06:10 RBC 3.52 10^6/uL (4.70-6.10) L 03/11/18 06:10 Hgb 11.9 g/dL (14.0-18.0) L 03/11/18 06:10 Hct 35.0 % (42.0-52.0) L 03/11/18 06:10 MCV 99.2 fL (80.0-94.0) H 03/11/18 06:10 MCH 33.7 pg (27.0-31.0) H 03/11/18 06:10 MCHC 34.0 g/dL (32.0-36.0) 03/11/18 06:10 RDW 12.9 % (12.0-15.0) 03/11/18 06:10 Plt Count 166 10^3/uL (130-450) 03/11/18 06:10 MPV 7.9 fL (7.4-11.4) 03/11/18 06:10 Neut # (Auto) 2.4 10^3/uL (1.5-6.6) 03/11/18 06:10 Lymph # (Auto) 1.0 10^3/uL (1.5-3.5) L 03/11/18 06:10 Park # (Auto) 0.6 10^3/uL (0.0-1.0) 03/11/18 06:10 Eos # (Auto) 0.1 10^3/uL (0.0-0.7) 03/11/18 06:10 Baso # (Auto) 0.0 10^3/uL (0.0-0.1) 03/11/18 06:10 Absolute Nucleated RBC 0.00 x10^3/uL 03/11/18 06:10 Nucleated RBC % 0.0 /100WBC 03/11/18 06:10 Sodium 136 mmol/L (135-145) 03/11/18 06:10 Potassium 3.9 mmol/L (3.5-5.0) 03/11/18 06:10 Chloride 105 mmol/L (101-111) 03/11/18 06:10 Carbon Dioxide 26 mmol/L (21-32) 03/11/18 06:10 Anion Gap 5.0 (6-13) L 03/11/18 06:10 BUN 12 mg/dL (6-20) 03/11/18 06:10 Creatinine 0.7 mg/dL (0.6-1.2) 03/11/18 06:10 Estimated GFR (MDRD) 110 (>89) 03/11/18 06:10 Glucose 99 mg/dL (70-100) 03/11/18 06:10 POC Whole Bld Glucose 93 mg/dL (70 - 100) 03/11/18 08:01 Glycated Hemoglobin 5.8 % (4.6-6.2) 03/09/18 03:05 Estim Average Glucose 120 (70-100) H 03/09/18 03:05 Lactic Acid 0.7 mmol/L (0.5-2.2) 03/09/18 02:55 Calcium 8.5 mg/dL (8.5-10.3) 03/11/18 06:10 Total Bilirubin 0.7 mg/dL (0.2-1.0) 03/09/18 02:55 AST 32 IU/L (10-42) 03/09/18 02:55 ALT 30 IU/L (10-60) 03/09/18 02:55 Alkaline Phosphatase 63 IU/L (42-121) 03/09/18 02:55 Total Protein 6.2 g/dL (6.7-8.2) L 03/09/18 02:55 Albumin 3.3 g/dL (3.2-5.5) 03/09/18 02:55 Globulin 2.9 g/dL (2.1-4.2) 03/09/18 02:55 Albumin/Globulin Ratio 1.1 (1.0-2.2) 03/09/18 02:55 Lipase 22 U/L (22-51) 03/09/18 02:55 Urine Color YELLOW 03/10/18 19:05 Urine Clarity CLEAR (CLEAR) 03/10/18 19:05 Urine pH 6.0 PH (5.0-7.5) 03/10/18 19:05 Ur Specific [place] 1.025 (1.002-1.030) 03/10/18 19:05 Urine Protein NEGATIVE mg/dL (NEGATIVE) 03/10/18 19:05 Urine Glucose (UA) NEGATIVE mg/dL (NEGATIVE) 03/10/18 19:05 Urine Ketones NEGATIVE mg/dL (NEGATIVE) 03/10/18 19:05 Urine Occult Blood SMALL (NEGATIVE) H 03/10/18 19:05 Urine Nitrite NEGATIVE (NEGATIVE) 03/10/18 19:05 Urine Bilirubin NEGATIVE (NEGATIVE) 03/10/18 19:05 Urine Urobilinogen 0.2 (NORMAL) E.U./dL (NORMAL) 03/10/18 19:05 Ur Leukocyte Esterase NEGATIVE (NEGATIVE) 03/10/18 19:05 Urine RBC 0-5 /HPF (0-5) 03/10/18 19:05 Urine WBC 0-3 /HPF (0-3) 03/10/18 19:05 Ur Squamous Epith Cells NONE SEEN (<= Few) 03/10/18 19:05 Urine Bacteria None Seen /HPF (None Seen) 03/10/18 19:05 Ur Microscopic Review INDICATED 03/10/18 19:05 Urine Culture Comments NOT INDICATED 03/10/18 19:05 Sepsis Event Note (H) - Evaluation Current Stage of Sepsis: Ruled out
[2018-03-11] MEDS ORDERED: GADOBUTROL 10 MMOL/10 ML VIAL ONE (11:33)
[2018-03-11] MEDS ORDERED: GADOBUTROL 15 MMOL/15 ML VIAL ONE (11:33)
[2018-03-11] MEDS ORDERED: GADOBUTROL 10 MMOL/10 ML VIAL IVP ONE (12:34)
--- NOTE | 2018-03-11 15:57 | MRI Report ---
Reason: Bacteremia, cellulitis L ankle Hx, eval for osteo Procedure Date: 03/11/2018 Accession Number: [id number] / [id number] Procedure: MRI - Ankle LT W/WO CPT Code: FULL RESULT: EXAM: LEFT ANKLE/HINDFOOT MRI WITHOUT AND WITH CONTRAST EXAM DATE: 03/11/2018 01:04 PM. CLINICAL HISTORY: Bacteremia. Left ankle cellulitis. Clinical concern for osteomyelitis. COMPARISON: None. TECHNIQUE: Multiplanar, multisequence T1-weighted and fluid-sensitive sequences of the ankle before and after administration of intravenous contrast. IV contrast: 10 mL Gadavist. Other: None. FINDINGS: Bones: Severe periarticular marrow edema and cyst formation is in the tibiotalar joints, the posterior subtalar joints, and the calcaneocuboid joint. There is mild ahsan-radicular cyst formation in the navicular distally. Although this is a nonweightbearing examination, the patient likely has severe pes planus. The fibula articulates with the lateral portion of the calcaneus. Articular Cartilage: Severe cartilage thinning is in the anterior tibiotalar joint. Ligaments: The anterior and posterior tibiofibular, anterior and posterior talofibular, and calcaneofibular ligaments are intact. The deep and superficial deltoid and spring ligaments are intact. Anterior Tendons: The tibialis anterior, extensor hallucis longus, and extensor digitorum longus tendons are unremarkable. Medial Tendons: The tibialis posterior, flexor digitorum longus, and flexor hallucis longus tendons are unremarkable. Lateral Tendons: The peroneus brevis and longus are unremarkable. Achilles Tendon: The Achilles tendon is unremarkable. Musculature: Severe fatty atrophy and some muscle edema and some edema is demonstrated in the intrinsic muscular foot indicating denervation injury. Other: No effusions or synovitis. The sinus tarsi is effaced and there is edema within it. No plantar fasciitis. Severe subcutaneous edema surrounds the hindfoot and mid foot. IMPRESSION: 1. 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 3. Subcutaneous edema around the foot may be cellulitis. No obvious drainable fluid collections. [facility] MUSCULOSKELETAL RADIOLOGY SECTION
[2018-03-11] MEDS: PIPERACILLIN/TAZOBACTAM 4.5 GM in SODIUM CHLORIDE 0.9% MINIBAG 100 ML IV SCH ×2 (16:11→22:53)
[2018-03-11] MEDS ORDERED: hydrALAZINE INJ 20 MG/ML VIAL IVP PRN (20:09)
[2018-03-11] MEDS: QUININE 300 MG PO SCH (21:50)
[2018-03-12] MEDS: SODIUM CHLORIDE FLUSH 0.9% 10 ML SYRINGE IVP SCH ×2 (01:55→08:41)
[2018-03-12] MEDS: amLODIPine 5 MG TABLET PO SCH ×2 (01:57→08:40)
[2018-03-12] MEDS: SODIUM CHLORIDE FLUSH 0.9% 10 ML SYRINGE IVP PRN (04:11)
[2018-03-12] MEDS: PIPERACILLIN/TAZOBACTAM 4.5 GM in SODIUM CHLORIDE 0.9% MINIBAG 100 ML IV SCH ×2 (04:11→10:52)
[2018-03-12] MEDS: IBUPROFEN 600 MG TABLET PO PRN (04:28)
[2018-03-12 06:37] LABS: BASOPHILS % (AUTO) 0.7 %; EOSINOPHILS # (AUTO) 0.1 10^3/uL (0.0-0.7); EOSINOPHILS % (AUTO) 2.5 %; LYMPHOCYTES # (AUTO) 1.1 10^3/uL (1.5-3.5); LYMPHOCYTES % (AUTO) 22.3 %; MEAN CORPUSCULAR HEMOGLOBIN 33.6 pg (27.0-31.0); MEAN CORPUSCULAR VOLUME 98.8 fL (80.0-94.0); MEAN PLATELET VOLUME 7.2 fL (7.4-11.4); MONOCYTES # (AUTO) 0.6 10^3/uL (0.0-1.0); MONOCYTES % (AUTO) 11.8 %; NEUTROPHILS # (AUTO) 3.2 10^3/uL (1.5-6.6); NEUTROPHILS % (AUTO) 62.7 %; PLT - PLATELET COUNT 217 10^3/uL (130-450); RED BLOOD COUNT 3.87 10^6/uL (4.70-6.10); RED CELL DISTRIBUTION WIDTH 13.4 % (12.0-15.0); WHITE BLOOD COUNT 5.1 x10^3/uL (4.8-10.8)
[2018-03-12 06:45] LABS: CALCIUM 8.9 mg/dL (8.5-10.3); CREATININE 0.6 mg/dL (0.6-1.2)
[2018-03-12] MEDS: CALCIUM CARBONATE CHEW 500 MG TABLET PO SCH (08:40)
[2018-03-12] MEDS: ENOXAPARIN 40 MG/0.4 ML SYRINGE SUBQ SCH (08:40)
[2018-03-12] MEDS: FAMOTIDINE 20 MG TABLET PO SCH (08:40)
[2018-03-12 08:41] VITALS: BP 180/89
[2018-03-12] MEDS: KETOROLAC TROMETHAMINE LEFTEYE SCH ×2 (08:41→12:04)
[2018-03-12] MEDS: POLYETHYLENE GLYCOL 3350 17 GM PACKET PO SCH (08:41)
[2018-03-12] MEDS: INSULIN ASPART 300 UNIT/3 ML PEN SUBQ SCH ×2 (08:41→12:01)
[2018-03-12] MEDS: ETODOLAC 500 MG PO SCH (08:45)
[2018-03-12] MEDS: CHOLECALCIFEROL 1,000 UNIT TABLET PO SCH (08:45)
[2018-03-12] MEDS ORDERED: IOPAMIDOL-300 100 ML VIAL ONE (09:22)
[2018-03-12] MEDS ORDERED: IOVERSOL 320 50 ML VIAL ONE (09:22)
[2018-03-12] MEDS ORDERED: IOPAMIDOL-300 100 ML VIAL IVP ONE (10:41)
[2018-03-12] MEDS ORDERED: IOVERSOL 320 50 ML VIAL PO ONE (10:41)
--- NOTE | 2018-03-12 11:54 | CT Report ---
Reason: pseudomonas with oral and IV Procedure Date: 03/12/2018 Accession Number: [id number] / [id number] Procedure: CT - Abdomen/Pelvis W/ CPT Code: FULL RESULT: EXAM: CT ABDOMEN AND PELVIS EXAM DATE: 03/12/2018 10:17 AM. CLINICAL HISTORY: Pseudomonas bacteremia, uncertain source. COMPARISONS: None. TECHNIQUE: Routine helical CT imaging was performed through the abdomen and pelvis. IV contrast: ISOVUE 300 100mL. Enteric contrast: Yes. Reconstructions: Coronal and sagittal. In accordance with CT protocol optimization, one or more of the following dose reduction techniques were utilized for this exam: automated exposure control, adjustment of mA and/or KV based on patient size, or use of iterative reconstructive technique. FINDINGS: Lung Bases: Unremarkable. Liver: Unremarkable. Gallbladder/Bile Ducts: Unremarkable. Spleen: Normal. Pancreas: Mild diffuse fatty replacement is noted, otherwise, unremarkable. Adrenal Glands: Normal. Kidneys: No stone, masses or hydronephrosis. Peritoneal Cavity/Bowel: There is a colon diverticulosis without diverticulitis. No free fluid, free air or adenopathy. No masses or acute inflammatory process. The appendix is well visualized and normal. Pelvic Organs: There are radiation seeds in the prostate. The bladder and visualized pelvic organs are within normal limits. Vasculature: No aneurysms or other significant abnormality. Bones: No bony destructive abnormality. There is moderate mid lumbar levoscoliosis with multilevel mild to severe degenerative disk disease, predominantly in the lower lumbar spine. IMPRESSION: 1. Negative for abscess, fluid collection, acute inflammatory changes, bowel obstruction or colitis in the abdomen and pelvis CT. 2. Colon diverticulosis. 3. Moderate mid lumbar levoscoliosis with multilevel mild to severe degenerative disk disease, predominantly in the lower lumbar spine. [facility]
--- NOTE | 2018-03-12 12:08 | Discharge Plan ---
Discharge Plan Disposition: Home, Self Care Condition: Good Prescriptions: Ciprofloxacin HCl [Cipro] 750 mg PO BID #60 tablet Diet: Diabetic Activity Restrictions: No Restrictions Shower Restrictions: No Driving Restrictions: No Instruction Topics: Levofloxacin tablets, Cellulitis Dc, ED Bacteremia Rule Out, ED Infec Skin Cellulitis Additional Instructions or Follow Up instructions: You were admitted to the hospital because blood cultures have been positive after a visit to the emergency room. You had been sent home, but with the posi tive blood cultures were requested to come back to the hospital. Blood cultures were growing Pseudomonas. While it is possible to be from cellulitis, Pseudomonas usually comes from other areas of your body and we were puzzled as to why that was in your bloodstream. Nevertheless, you were treated as an infection with broad-spectrum antibiotics. We look for other sources of Pseudomonas and a CAT scan of your abdomen showed a normal bowel, normal bladder and normal kidney. We did speak to [facility] infectious disease and they recommended 10 days of Ciprofloxacin by mouth. You were to complete that therapy at home. Your primary care provider is Dr. Bebeto Paul. He has been following you carefully and spoke to us on the day of your discharge and knows what the plan is. During your stay your blood pressure has intermittently been elevated. Sometimes it is down to 118 systolic and can get as high as 180 systolic. Your diastolic number has been good at 54-89. I would ask that you check your blood pressure once a day only. Write those numbers down and present them to Dr. Paul to see if you need to resume blood pressure medicines that were stopped in the past. No Smoking: If you smoke, Please STOP! Call for help. Follow-up with: Bebeto Paul MD [Primary Care Provider] -
[2018-03-12] MEDS ORDERED: amLODIPine 5 MG TABLET PO SCH (22:13)
--- NOTE | 2018-03-12 22:34 | DISCHARGE SUMMARY ---
Physician: Martha Alonso MD DATE OF ADMISSION: 03/09/2018 DATE OF DISCHARGE: 03/12/2018 DISCHARGE DIAGNOSES 1. Bacteremia due to Pseudomonas. 2. Cellulitis of left lower extremity. 3. Type 2 diabetes mellitus, without complication, not on long-term use of insulin. 4. Hypertension. 5. History of prostate cancer. PRINCIPAL PROCEDURES 1. Blood cultures done 03/09/2018 without growth. 2. Blood cultures done 03/08/2018 showing Pseudomonas aeruginosa sensitive to cefepime, Cipro, gentamicin, imipenem, Levaquin, piperacillin, tobramycin. 3. Echocardiogram preliminary reading. Systolic ejection fraction 55-60% with impaired relaxation consistent with grade 1 diastolic dysfunction. No regional wall motion abnormalities. Right ventricle normal. Severe increase in left atrial volume index, mild to moderate right atrial enlargement. 4. Chest x-ray with small lung volumes, borderline cardiomegaly and pulmonary vascular congestion. Elevated left hemidiaphragm with mild left basilar atelectasis or infiltrate. 5. MRI of the ankle and foot: Acquired degenerative hindfoot deformity, arthritic sinus tarsi syndrome, subcutaneous edema around the foot may be cellulitis. No osteomyelitis. 6. Abdomen and pelvis CT: Lung bases unremarkable, liver unremarkable, gallbladder and ducts unremarkable, spleen normal. Fatty replacement of the pancreas. No stones, masses, or hydronephrosis. Colonic diverticulosis without any free air, masses, inflammation. Radiation seeds in the prostate. Bladder and visualized pelvic organs normal. 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 He had been in the emergency room the night prior to admission and felt unwell at home. His chief complaint was feeling unwell with muscle aches, feeling sick and having a fever and chills. He was given a presumptive diagnosis of recurrence of his left ankle cellulitis because he had had this in the past. There may have been mild increased streaking and redness, but it was really mild. He was given a dose of Rocephin and sent home on Augmentin. He had to return today when the ER called him to tell him that his blood cultures were now growing Pseudomonas. He returned to the ED to get Rocephin and a liter of IV fluids. During his stay, the patient was afebrile, had no elevated white cell count. His left ankle did get a little redder than usual, but was not felt to be flamingly infected. It was a puzzle to where he was having his Pseudomonas source from. It was felt to be presenting from probable prostate cancer. The above radiology studies were done. No other source was found. Anxiety was present during his stay. He had adherence to his personal schedule and if that was not accomplished, he was very agitated. On the day of discharge, he was agitated enough that his blood pressure was 180/89 with his anxiety. He states that he does have high blood pressure in the past, but he is not taking any medications for it. During his stay, his blood pressure was 140s- 180s systolic, 64-89 diastolic. While he did ask for blood pressure medicine at discharge, I explained to him that it would be prudent for him to see his primary care provider. Check his blood pressure no more than once a day and have Dr. Paul review those blood pressure readings to see if he needed blood pressure medication again. He also felt that he was hypoglycemic, when his sugar was 98. The rest of his stay, his glucose was 119-146. A1c was 5.8%. PHYSICAL EXAMINATION He is discharged in stable condition. VITAL SIGNS: Temperature 36.7, pulse 60, blood pressure 180/89, respirations 18, 99% on room air. GENERAL: He is an awake, alert, well-nourished, well-developed, congenial white male who looks his stated age. Able to get up in the room and ambulate without any assistance. He is going to the bathroom by himself. Sitting at the chair, eating breakfast at discharge. NECK: Supple. No goiter or bruits. LUNGS: Clear to auscultation and percussion. PMI is normally placed with a regular rate and rhythm. ABDOMEN: Soft, obese, nontender without any organomegaly. The left ankle has edema and deformity compatible with old Charcot joint disease. Again, his only fever spike was March 08 at 38.5-39.3 but none during this admission. Blood cultures were negative. Greater than 30 minutes was spent coordinating discharge. The patient was sent home on Cipro 750 b.i.d. per [facility] recommendations. They had requested that if his CT was positive for a urologic source that he be on 14 days of Cipro. If no source was seen in CT, then only 10 days of Cipro. As such, the patient is discharged on only 10 days of ciprofloxacin. TD: 03/12/2018 19:18 MTDD
== END 2018-03-12 13:00 | disposition home or self-care (01) | DRG 872 ==
LOC: ED 01:48 → MS3 02:43 → MS2 15:52
PROVIDERS: ADMIT Family Medicine Sports Medicine; ATTEND Specialist
DX: R78.81 Bacteremia (principal); E86.0 Dehydration; L03.116 Cellulitis of left lower limb; E87.1 Hypo-osmolality and hyponatremia; Z86.19 Personal history of other infectious and parasitic diseases; B96.5 Pseudomonas (aeruginosa) (mallei) (pseudomallei) as the cause of diseases classified elsewhere; F41.9 Anxiety disorder, unspecified; E11.9 Type 2 diabetes mellitus without complications; I11.9 Hypertensive heart disease without heart failure; Z79.84 Long term (current) use of oral hypoglycemic drugs; Z85.46 Personal history of malignant neoplasm of prostate; Z79.1 Long term (current) use of non-steroidal anti-inflammatories (NSAID)
CPT/HCPCS: 36415; 71045; 74177; 80048; 80053; 81001; 81003; 83036; 83605; 83690; 85025; 87040; 87086; 93306; 96365; 99283; 99284

== ENCOUNTER 2018-06-23 21:33 | Emergency (ER) | payer MEDICARE, OTHER ==
--- NOTE | 2018-06-23 22:17 | XRAY Report ---
Reason: cough fever Procedure Date: 06/23/2018 Accession Number: [id number] / [id number] Procedure: XR - Chest 2 View X-Ray CPT Code: 94596 FULL RESULT: EXAM: CHEST RADIOGRAPHY EXAM DATE: 06/23/2018 09:58 PM. CLINICAL HISTORY: Cough fever. COMPARISON: CHEST 1 VIEW 03/09/2018 2:28 AM. TECHNIQUE: 2 views. FINDINGS: Lungs/Pleura: Minimal linear atelectasis or scarring at the left base. No focal infiltrate, effusion, or pneumothorax. Mediastinum: Heart and mediastinal contours are unremarkable. Other: None. IMPRESSION: Minimal left basilar atelectasis. [facility]
[2018-06-23 22:24] LABS: BASOPHILS # (AUTO) 0.1 10^3/uL (0.0-0.1); BASOPHILS % (AUTO) 0.5 %; EOSINOPHILS # (AUTO) 0.2 10^3/uL (0.0-0.7); EOSINOPHILS % (AUTO) 1.3 %; LYMPHOCYTES # (AUTO) 0.4 10^3/uL (1.5-3.5); LYMPHOCYTES % (AUTO) 3.4 %; MEAN CORPUSCULAR HEMOGLOBIN 32.9 pg (27.0-31.0); MEAN CORPUSCULAR HGB CONC 34.1 g/dL (32.0-36.0); MEAN CORPUSCULAR VOLUME 96.5 fL (80.0-94.0); MEAN PLATELET VOLUME 7.6 fL (7.4-11.4); MONOCYTES # (AUTO) 0.7 10^3/uL (0.0-1.0); MONOCYTES % (AUTO) 5.4 %; NEUTROPHILS # (AUTO) 11.7 10^3/uL (1.5-6.6); NEUTROPHILS % (AUTO) 89.4 %; PLT - PLATELET COUNT 226 10^3/uL (130-450); RED BLOOD COUNT 4.24 10^6/uL (4.70-6.10); RED CELL DISTRIBUTION WIDTH 12.9 % (12.0-15.0); WHITE BLOOD COUNT 13.1 x10^3/uL (4.8-10.8)
[2018-06-23 22:34] LABS: ALBUMIN 4.1 g/dL (3.2-5.5); ALBUMIN/GLOBULIN RATIO 1.3 (1.0-2.2); BILIRUBIN,TOTAL 0.5 mg/dL (0.2-1.0); CALCIUM 9.2 mg/dL (8.5-10.3); CREATININE 0.8 mg/dL (0.6-1.2); TOTAL PROTEIN 7.2 g/dL (6.7-8.2)
[2018-06-23 22:49] LABS: GLUCOSE, URINE (UA) NEGATIVE (NEGATIVE); KETONES,URINE (UA) NEGATIVE (NEGATIVE); LEUKOCYTE ESTERASE, URINE NEGATIVE (NEGATIVE); NITRITE,URINE NEGATIVE (NEGATIVE); OCCULT BLOOD,URINE NEGATIVE (NEGATIVE); PROTEIN,URINE NEGATIVE (NEGATIVE); UROBILINOGEN,URINE 0.2 (NORMAL) E.U./dL (NORMAL)
--- NOTE | 2018-06-23 22:54 | ED Physician Documentation ---
History of Present Illness - Stated complaint Stated Complaint: FEVER - Chief complaint Chief Complaint: Fever - History obtained from History obtained from: Patient, Family - History of Present Illness Timing: Today - Additonal information Additional information: 77-year-old male with a prior history of episodes of sepsis has developed acute shaking chills this evening. He states that he was feeling well earlier in the day have been out in the yard and when he came inside developed the shaking chills was noted to have a fever up to 100.7. He is come to the emergency department now his symptoms are nearly resolved. In the past he has had cellulitis in his ankle and this is recurred and he has had an admission in February of last year for cellulitis with positive blood cultures that grew Pseudomonas. He was discharged home on a 10-day course of Cipro. He does have a history of prostate cancer and a recurrence and in this prior hospitalization they were not able to implicate the prostate in the process. The patient has a clear history of cellulitis especially to the left ankle that has recurred 7 times. He does not have symptoms today of cellulitis. Review of Systems Constitutional: reports: Fever, Chills, Myalgias, Fatigue Eyes: denies: Decreased vision Ears: denies: Ear pain Nose: denies: Rhinorrhea / runny nose, Congestion Throat: denies: Sore throat Cardiac: denies: Chest pain / pressure, Palpitations Respiratory: denies: Dyspnea, Cough GI: denies: Abdominal Pain, Nausea, Vomiting, Constipation, Diarrhea : denies: Dysuria, Frequency Skin: denies: Rash Musculoskeletal: denies: Neck pain, Back pain, Extremity pain Neurologic: denies: Generalized weakness, Focal weakness, Numbness PD PAST MEDICAL HISTORY - Past Medical History Past Medical History: Yes Cardiovascular: None Respiratory: None Neuro: None Endocrine/Autoimmune: Type 2 diabetes, HyPOthyroidism GI: None : Other HEENT: None Psych: None Musculoskeletal: Osteoarthritis Derm: None Other Past Medical History: prostate cancer - Past Surgical History Past Surgical History: Yes /FLOORING SALESPERSON: Other - Present Medications Home Medications: Ambulatory Orders Medication Instructions Recorded Confirmed Etodolac [Etodolac ER] 500 mg PO BID 10/16/12 03/27/18 Calcium Carbonate [Calcium] 1 tab PO DAILY 03/08/18 03/27/18 Cholecalciferol (Vitamin D3) 1,000 unit PO DAILY 03/08/18 03/27/18 [Vitamin D3] Aspirin [Judah] 325 mg PO DAILY 03/09/18 03/27/18 Metformin HCl 500 mg PO BID 03/09/18 03/27/18 Quinine-Odan 300 mg PO QPM 03/09/18 03/27/18 Vit A/Vit C/Vit E/Zinc/Copper 1 each PO BID 03/09/18 03/27/18 [Preservision Areds Softgel] Ciprofloxacin HCl [Cipro] 500 mg PO BID #20 tablet 06/24/18 - Allergies Allergies/Adverse Reactions: Allergies Allergy/AdvReac Type Severity Reaction Status Date / Time No Known Drug Allergies Allergy Verified 06/23/18 21:43 - Social History Does the pt smoke?: No Smoking Status: Never smoker Does the pt drink ETOH?: No Does the pt have substance abuse?: No - Immunizations Immunizations are current?: Yes - POLST Patient has POLST: No PD ED PE NORMAL - Vitals Vital signs reviewed: Yes (hypertensive ) - General General: Alert and oriented X 3, No acute distress, Well developed/nourished - HEENT HEENT: Atraumatic, PERRL, EOMI, Ears normal, Other (dry mucous membranes ) - Neck Neck: Supple, no meningeal sign, No bony TTP - Cardiac Cardiac: No murmur, Other (tachy to 100) - Respiratory Respiratory: No respiratory distress, Clear bilaterally - Abdomen Abdomen: Soft, Non tender - Back Back: No CVA TTP, No spinal TTP - Derm Derm: Normal color, No rash - Extremities Extremities: No deformity, No edema - Neuro Neuro: Alert and oriented X 3, 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, No motor deficit, No sensory deficit, Normal speech Eye Opening: Spontaneous Motor: Obeys Commands Verbal: Oriented GCS Score: 15 - Psych Psych: Normal mood, Normal affect Results - Vitals Vitals: Vital Signs - 24 hr 06/23/18 06/23/18 21:38 22:05 Temperature 37.2 C Heart Rate 85 90 Respiratory 18 18 Rate Blood Pressure 183/88 H 161/91 H O2 Saturation 95 94 Oxygen O2 Source Room air - Labs Labs: Laboratory Tests 06/23/18 06/23/18 06/23/18 22:12 22:12 22:12 WBC 13.1 H RBC 4.24 L Hgb 14.0 Hct 41.0 L MCV 96.5 H MCH 32.9 H MCHC 34.1 RDW 12.9 Plt Count 226 MPV 7.6 Neut # (Auto) 11.7 H Lymph # (Auto) 0.4 L Clay # (Auto) 0.7 Eos # (Auto) 0.2 Baso # (Auto) 0.1 Absolute Nucleated RBC 0.00 Nucleated RBC % 0.0 Sodium 132 L Potassium 3.9 Chloride 97 L Carbon Dioxide 25 Anion Gap 10.0 BUN 23 H Creatinine 0.8 Estimated GFR (MDRD) 94 Glucose 163 H Lactic Acid 1.8 Calcium 9.2 Total Bilirubin 0.5 AST 23 ALT 16 Alkaline Phosphatase 87 Total Protein 7.2 Albumin 4.1 Globulin 3.1 Albumin/Globulin Ratio 1.3 Lipase 36 Urine Color Urine Clarity Urine pH Ur Specific [place] Urine Protein Urine Glucose (UA) Urine Ketones Urine Occult Blood Urine Nitrite Urine Bilirubin Urine Urobilinogen Ur Leukocyte Esterase Ur Microscopic Review Urine Culture Comments Influenza A (Rapid) Influenza B (Rapid) 06/23/18 06/23/18 22:40 22:40 WBC RBC Hgb Hct MCV MCH MCHC RDW Plt Count MPV Neut # (Auto) Lymph # (Auto) Clay # (Auto) Eos # (Auto) Baso # (Auto) Absolute Nucleated RBC Nucleated RBC % Sodium Potassium Chloride Carbon Dioxide Anion Gap BUN Creatinine Estimated GFR (MDRD) Glucose Lactic Acid Calcium Total Bilirubin AST ALT Alkaline Phosphatase Total Protein Albumin Globulin Albumin/Globulin Ratio Lipase Urine Color YELLOW Urine Clarity CLEAR Urine pH 6.0 Ur Specific [place] 1.020 Urine Protein NEGATIVE Urine Glucose (UA) NEGATIVE Urine Ketones NEGATIVE Urine Occult Blood NEGATIVE Urine Nitrite NEGATIVE Urine Bilirubin NEGATIVE Urine Urobilinogen 0.2 (NORMAL) Ur Leukocyte Esterase NEGATIVE Ur Microscopic Review NOT INDICATED Urine Culture Comments NOT INDICATED Influenza A (Rapid) Negative Influenza B (Rapid) Negative - Rads (name of study) chest Radiology: Prelim report reviewed (Impression: Minimal left basilar atelectasis.), EMP read indepedently, See rad report Procedures - IVC sono (time) 7031 Bedside IVC sono: IVC measures (cm) (1.08), Dehydration (est 1-2 liter deficit) PD MEDICAL DECISION MAKING - ED course Complexity details: considered differential, d/w patient, d/w family ED course: 77-year-old male with a prior history of sepsis from cellulitis has developed shaking chills today and his prior organism was a Pseudomonas. He does not appear to have cellulitis today he does have a mildly elevated white blood cell count no other specific findings on physical examination and here in the emergency department he is found to be dehydrated on interrogation of the infe rior vena cava. He expected to be dehydrated based on his intake today. He was administered a liter of saline as well as 400 mg of Cipro intravenously. Blood cultures are pending and we will send him home on a course of Cipro. Departure - Departure Disposition: Home, Self Care Clinical Impression: Shaking chills Condition: Stable Instructions: ED Bacteremia Rule Out Follow-Up: Phani Moss MD [Primary Care Provider] - Prescriptions: Ciprofloxacin HCl [Cipro] 500 mg PO BID #20 tablet
[2018-06-23 22:58] LABS: BILIRUBIN,URINE NEGATIVE (NEGATIVE); ICTOTEST,URINE NEGATIVE
[2018-06-23 23:01] LABS: CLARITY,URINE CLEAR (CLEAR)
[2018-06-23] MEDS ORDERED: CIPROFLOXACIN 400 MG/200 ML 200 ML IV ONE (23:18)
[2018-06-24 00:59] VITALS: BP 138/75
== END 2018-06-24 01:00 | disposition home or self-care (01) ==
LOC: ED 21:33
DX: R68.83 Chills (without fever) (principal); R25.9 Unspecified abnormal involuntary movements; E86.0 Dehydration; C61 Malignant neoplasm of prostate; E03.9 Hypothyroidism, unspecified; E11.9 Type 2 diabetes mellitus without complications
CPT/HCPCS: 36415; 71046; 80053; 81001; 81003; 83605; 83690; 85025; 87040; 87077; 87086; 87181; 87275; 87276; 96365; 99283; 99284

== ENCOUNTER 2018-09-28 11:30 | Outpatient (CLI) | payer MEDICARE, OTHER ==
--- NOTE | 2018-09-28 15:56 | XRAY Report ---
Reason: FOOT DEFORMITY Procedure Date: 09/28/2018 Accession Number: [id number] / [id number] Procedure: XR - Ankle 3 View BILAT CPT Code: FULL RESULT: EXAMS: 1. RIGHT ANKLE RADIOGRAPHY 2. LEFT ANKLE RADIOGRAPHY EXAM DATE: 09/28/2018 12:28 PM. CLINICAL HISTORY: Foot deformity. COMPARISON: None. TECHNIQUE: 3 views each ankle. FINDINGS: Right Ankle: Bones: Mild posttraumatic changes are seen along the medial malleolus. Fracture is seen. There is mild inferior calcaneal spurring. Joints: The ankle mortise is symmetric. Partially visualized are midfoot degenerative changes as well as osteophytosis at the talocalcaneal interfaces. Soft Tissues: Soft tissues around the ankle are swollen. Left Ankle: Bones: Posttraumatic changes are seen in the region of the medial and lateral malleolus without an acute fracture detected. Os trigonum is noted. Mild inferior calcaneal spurring is noted. Joints: Midfoot degenerative changes and apparent pes planus are not well characterized on this examination. There are posttraumatic degenerative changes of the tibiotalar articulation as well as the talocalcaneal interfaces. The ankle mortise is symmetric. Soft Tissues: There is soft tissue swelling in the ankle region. IMPRESSION: Bilateral degenerative changes and posttraumatic appearance of the left greater than right ankles. RADIA
== END 2018-09-28 11:31 | disposition home or self-care (01) ==
LOC: DI 11:30
PROVIDERS: ATTEND Internal Medicine
DX: M19.072 Primary osteoarthritis, left ankle and foot (principal); M19.071 Primary osteoarthritis, right ankle and foot

== ENCOUNTER 2018-10-07 05:13 | Outpatient (CLI) | payer MEDICARE, OTHER | END 2018-10-07 05:14 | disposition short-term general hospital (02) | LOC: EMS 05:13 | PROVIDERS: ATTEND Surgery | DX: R20.0 Anesthesia of skin (principal); R11.0 Nausea; R53.1 Weakness | CPT/HCPCS: A0425; A0427 ==

== ENCOUNTER 2018-10-16 14:02 | Outpatient (CLI) | payer MEDICARE, OTHER ==
[2018-10-16 17:24] LABS: PARTIAL THROMBOPLASTIN TIME 30.6 secs (24.9-33.3)
[2018-10-16 17:25] LABS: BASOPHILS # (AUTO) 0.1 10^3/uL (0.0-0.1); BASOPHILS % (AUTO) 0.8 %; EOSINOPHILS # (AUTO) 0.2 10^3/uL (0.0-0.7); EOSINOPHILS % (AUTO) 1.9 %; LYMPHOCYTES # (AUTO) 1.8 10^3/uL (1.5-3.5); LYMPHOCYTES % (AUTO) 22.6 %; MEAN CORPUSCULAR HGB CONC 32.3 g/dL (32.0-36.0); MEAN CORPUSCULAR VOLUME 99.1 fL (80.0-94.0); MEAN PLATELET VOLUME 10.3 fL (7.4-11.4); MONOCYTES # (AUTO) 0.7 10^3/uL (0.0-1.0); MONOCYTES % (AUTO) 8.8 %; NEUTROPHILS # (AUTO) 5.2 10^3/uL (1.5-6.6); NEUTROPHILS % (AUTO) 65.6 %; PLT - PLATELET COUNT 266 10^3/uL (130-450); RED BLOOD COUNT 4.37 10^6/uL (4.70-6.10); RED CELL DISTRIBUTION WIDTH 12.2 % (12.0-15.0)
[2018-10-16 17:44] LABS: CALCIUM 9.2 mg/dL (8.5-10.3); CREATININE 0.8 mg/dL (0.6-1.2)
[2018-10-16 17:50] LABS: PT - PROTHROMBIN TIME 11.5 secs (9.9-12.6)
== END 2018-10-16 14:03 | disposition home or self-care (01) ==
LOC: LAB.S 14:02
PROVIDERS: ATTEND Internal Medicine
DX: G45.9 Transient cerebral ischemic attack, unspecified (principal)
CPT/HCPCS: 36415; 80048; 85025; 85610; 85730

== ENCOUNTER 2023-08-04 08:00 | Outpatient (CLI) | payer MEDICARE, OTHER ==
--- NOTE | 2023-08-04 11:16 | XRAY Report ---
Chest 2V HISTORY: ACUTE COUGH COMPARISON: 06/26/2018. TECHNIQUE: 2 views of the chest are submitted for interpretation. FINDINGS/IMPRESSION: No pleural effusion or pneumothorax. No pulmonary edema or focal consolidation. Normal cardiomediastinal silhouette. Dextroscoliosis of the thoracic spine, progressed from 2019. Reviewed by: Chantale Tate MD on 08/04/2023 11:14 AM PDT Approved by: Chantale Tate MD on 08/04/2023 11:14 AM PDT Station ID: [email or web address]
== END 2023-08-04 23:59 | disposition home or self-care (01) ==
LOC: DI.S 08:00
PROVIDERS: ATTEND Registered Nurse
DX: R05.1 Acute cough (principal); M41.9 Scoliosis, unspecified

== ENCOUNTER → 2023-08-04 | Outpatient (CLI) | payer MEDICARE, OTHER | LOC: LAB.S 08:00 | PROVIDERS: ATTEND Registered Nurse | DX: Z53.9 Procedure and treatment not carried out, unspecified reason (principal) ==

== ENCOUNTER 2024-01-06 10:05 | Outpatient (CLI) | payer MEDICARE, OTHER ==
[2024-01-07 21:07] LABS: KAPPA FREE LT CHAINS SERUM 21.8 mg/L (3.3-19.4); KAPPA/LAMBDA RATIO SERUM 1.25 (0.26-1.65); LAMBDA FREE LT CHAINS SERUM 17.4 mg/L (5.7-26.3)
== END 2024-01-06 10:06 | disposition home or self-care (01) ==
LOC: LAB.S 10:05
DX: I50.9 Heart failure, unspecified (principal)
CPT/HCPCS: 81599; 82784; 83521; 84155; 84165; 86334